=== PATIENT | male | born 1965 | race African-American/Black ===

== ENCOUNTER 2017-09-11 12:38 | Inpatient (IN) | payer MEDICARE, MEDICAID ==
[~2017-09-11] VITALS: Ht 193 cm; Wt 99.8 kg
[~2017-09-11 12:38] MED LIST: AMLO5TAB4 PO; ASPI-1159 PO; ATEN1TAB42 PO; ATOR40TA70 PO; CARV25TA47 PO; FOLI0.8T23 PO; LISI40TA4 PO; MINO2.5T19 PO; MULT-1146 PO; SEVE800T8 PO; [UNRECOGNIZED DRUG - REMARK] PO
[2017-09-11] MEDS ORDERED: MORPHINE SULFATE 4 MG/ML CPJ (NOT FOR IM USE) IV STA (13:22)
[2017-09-11] MEDS ORDERED: ONDANSETRON HCL 4MG/2ML VIAL IV STA (13:22)
[2017-09-11 14:49] LABS: BASOPHILS % 0.7 % (0.0-2.0); EOSINOPHILS % 3.5 % (0.0-5.0); HEMATOCRIT. 30.3 % (42.0-52.0); HEMOGLOBIN. 9.7 g/dL (14.0-18.0); LYMPHOCYTES % 11.9 % (20.0-50.0); MEAN CORPUSCULAR HEMOGLOBIN 25.4 pg (28.0-32.0); MEAN CORPUSCULAR VOLUME 79.2 fL (80.0-94.0); MEAN PLATELET VOLUME 9.8 fl (7.4-10.4); MONOCYTES % 11.8 % (2.0-8.0); NEUTROPHILS % 72.1 % (40.0-76.0); PLATELET 268 x1000/uL (130-400); RED BLOOD CELL COUNT 3.82 mill/uL (4.7-6.1); RED CELL DISTRIBUTION WIDTH 21.9 % (11.6-14.6)
[2017-09-11 14:50] LABS: INR 1.2; PROTHROMBIN TIME 12.1 sec (9.4-11.6)
[2017-09-11 14:54] LABS: CARBON DIOXIDE 31 mEq/L (21-32); CHLORIDE 97 mEq/L (98-107)
[2017-09-11] MEDS ORDERED: DEXTROSE 50% WATER 50ML SYRINGE IV ONE (16:00)
[2017-09-11] MEDS ORDERED: SODIUM BICARBONATE 8.4% 1 MEQ/ML 50ML SYR IV ONE (16:00)
[2017-09-11] MEDS ORDERED: SODIUM POLYSTYRENE SULFONATE 15 G/60 ML BOT PO ONE (16:00)
[2017-09-11] MEDS ORDERED: INSULIN REGULAR (HUMULIN R) 300UNITS/3ML IV ONE (16:00)
[2017-09-11] MEDS ORDERED: ONDANSETRON HCL 4MG/2ML VIAL IV ONE (16:45)
[2017-09-11] MEDS ORDERED: MORPHINE SULFATE 4 MG/ML CPJ (NOT FOR IM USE) IV ONE (16:45)
[2017-09-11 17:07] LABS: CLARITY URINE CLEAR (CLEAR); COLOR URINE YELLOW (YELLOW); GLUCOSE URINE TRACE (NEGATIVE); KETONES URINE NEGATIVE (NEGATIVE); LEUKOCYTE ESTERASE URINE 1+ (NEGATIVE); NITRITE URINE NEGATIVE (NEGATIVE); OCCULT BLOOD URINE NEGATIVE (NEGATIVE); PH URINE >=9.0 (4.5-8.0); PROTEIN URINE 3+ (NEGATIVE); SPECIFIC GRAVITY URINE 1.011 (1.005-1.030); UROBILINOGEN URINE 0.2 E.U./dL (0.2-1.0)
[2017-09-11] MEDS ORDERED: ACETAMINOPHEN 325MG TABLET PO PRN (17:15)
[2017-09-11] MEDS ORDERED: SODIUM POLYSTYRENE SULFONATE 15 G/60 ML BOT PO SCH (17:15)
[2017-09-11] MEDS ORDERED: ONDANSETRON HCL 4MG/2ML VIAL IV PRN (17:15)
[2017-09-11] MEDS: MORPHINE SULFATE 4 MG/ML CPJ (NOT FOR IM USE) IV PRN (19:37)
[2017-09-11] MEDS: CLONIDINE 0.1MG TABLET PO PRN (20:13)
[2017-09-11 22:20] VITALS: BP 181/114
[2017-09-11] MEDS ORDERED: CEFAZOLIN 1000MG PREMIX 50 ML IV SCH (23:00)
[2017-09-12] VITALS (12 sets, daily range): BP systolic 123–188; BP diastolic 78–122
[2017-09-12] MEDS: MORPHINE SULFATE 4 MG/ML CPJ (NOT FOR IM USE) IV PRN ×3 (00:24→13:15)
[2017-09-12] MEDS: CLONIDINE 0.1MG TABLET PO PRN (03:34)
[2017-09-12 06:41] LABS: BASOPHILS % 1.1 % (0.0-2.0); EOSINOPHILS % 3.6 % (0.0-5.0); HEMATOCRIT. 28.4 % (42.0-52.0); HEMOGLOBIN. 9.3 g/dL (14.0-18.0); LYMPHOCYTES % 8.1 % (20.0-50.0); MEAN CORPUSCULAR HEMOGLOBIN 25.5 pg (28.0-32.0); MEAN CORPUSCULAR VOLUME 78.1 fL (80.0-94.0); MEAN PLATELET VOLUME 10.1 fl (7.4-10.4); MONOCYTES % 14.2 % (2.0-8.0); PLATELET 247 x1000/uL (130-400); RED BLOOD CELL COUNT 3.64 mill/uL (4.7-6.1); RED CELL DISTRIBUTION WIDTH 21.3 % (11.6-14.6)
[2017-09-12 06:59] LABS: CARBON DIOXIDE 30 mEq/L (21-32); CHLORIDE 97 mEq/L (98-107)
[2017-09-12 07:02] LABS: TROPONIN I 0.09 ng/mL (0.00-0.04)
[2017-09-12] MEDS ORDERED: VITAMIN B COMP W C PO SCH (09:00)
[2017-09-12] MEDS ORDERED: FOLIC ACID PO SCH (09:00)
[2017-09-12] MEDS: LISINOPRIL 40MG TABLET PO SCH ×3 (09:00→21:00)
[2017-09-12] MEDS ORDERED: AMLODIPINE 5MG TABLET PO SCH (09:00)
[2017-09-12] MEDS ORDERED: IOHEXOL-300 100 ML BOTTLE ONE (09:49)
[2017-09-12] MEDS ORDERED: LIDOCAINE HCL 1% 20ML VIAL (Pyxis) INJ ONE (09:49)
[2017-09-12] MEDS ORDERED: SODIUM BICARBONATE 4% (2.4MEQ) 5ML VIAL IV ONE (09:49)
[2017-09-12] MEDS ORDERED: MIDAZOLAM HCL 2 MG/2 ML VIAL ONE (09:56)
[2017-09-12] MEDS ORDERED: FENTANYL CITRATE/PF 50MCG/ML 2ML VIAL ONE (09:56)
[2017-09-12] MEDS: SEVELAMER CARBONATE 800 MG TABLET PO SCH ×3 (11:03→18:23)
[2017-09-12] MEDS: FOLIC ACID/VITAMIN B COMP W-C TABLET PO SCH (11:03)
[2017-09-12] MEDS: CARVEDILOL 25MG TABLET PO SCH ×2 (11:04→20:46)
[2017-09-12] MEDS: MINOXIDIL 2.5MG TABLET PO SCH ×2 (11:04→21:00)
[2017-09-12] MEDS: ASPIRIN 81MG EC TABLET PO SCH (11:05)
[2017-09-12] MEDS: NIFEDIPINE XL 60MG TAB PO SCH ×2 (15:57→21:37)
[2017-09-12] MEDS: MORPHINE SULFATE 2 MG/ML CPJ (NOT FOR IM USE) IV PRN ×2 (18:24→23:28)
[2017-09-12] MEDS ORDERED: ATORVASTATIN CALCIUM 40MG TABLET PO SCH (21:00)
[2017-09-12] MEDS: AMLODIPINE 5MG TABLET PO SCH (21:00)
[2017-09-12] MEDS: HYDRALAZINE HCL 50MG TABLET PO SCH (21:56)
[2017-09-12] MEDS ORDERED: CEFAZOLIN 500MG in DEXTROSE 5% WATER 50ML IV SCH (23:00)
[2017-09-13 04:00] VITALS: BP 101/63
[2017-09-13] MEDS: HYDRALAZINE HCL 50MG TABLET PO SCH ×2 (05:22→14:00)
[2017-09-13 06:16] LABS: BASOPHILS % 0.6 % (0.0-2.0); EOSINOPHILS % 3.2 % (0.0-5.0); HEMATOCRIT. 28.6 % (42.0-52.0); HEMOGLOBIN. 9.3 g/dL (14.0-18.0); LYMPHOCYTES % 9.4 % (20.0-50.0); MEAN CORPUSCULAR HEMOGLOBIN 25.4 pg (28.0-32.0); MEAN CORPUSCULAR VOLUME 78.6 fL (80.0-94.0); MEAN PLATELET VOLUME 10.1 fl (7.4-10.4); MONOCYTES % 12.9 % (2.0-8.0); NEUTROPHILS % 73.9 % (40.0-76.0); PLATELET 232 x1000/uL (130-400); RED BLOOD CELL COUNT 3.64 mill/uL (4.7-6.1); RED CELL DISTRIBUTION WIDTH 21.6 % (11.6-14.6)
[2017-09-13 07:55] VITALS: BP 100/49
[2017-09-13] MEDS: SEVELAMER CARBONATE 800 MG TABLET PO SCH ×3 (08:47→16:33)
[2017-09-13] MEDS: ASPIRIN 81MG EC TABLET PO SCH (08:47)
[2017-09-13] MEDS: FOLIC ACID/VITAMIN B COMP W-C TABLET PO SCH (08:47)
[2017-09-13] MEDS: CARVEDILOL 25MG TABLET PO SCH (08:48)
[2017-09-13] MEDS: MORPHINE SULFATE 2 MG/ML CPJ (NOT FOR IM USE) IV PRN (08:48)
[2017-09-13] MEDS: MINOXIDIL 2.5MG TABLET PO SCH (08:48)
[2017-09-13] MEDS: LISINOPRIL 40MG TABLET PO SCH (08:49)
[2017-09-13] MEDS: AMLODIPINE 5MG TABLET PO SCH (08:49)
[2017-09-13] MEDS: NIFEDIPINE XL 60MG TAB PO SCH (08:49)
[2017-09-13 11:55] VITALS: BP 122/72
[2017-09-13 15:52] VITALS: BP 154/95
[2017-09-13 17:18] VITALS: BP 142/99
== END 2017-09-13 17:20 | disposition home or self-care (01) | DRG 314 ==
LOC: ER 13:45 → CANRESERV 15:29 → ENRESERV 15:29 → 8WST 16:59 → EDBEDREQ 17:01 → EDBEDREQSVC 17:01 → EDBEDREQTM 17:01 → ENRESERV 19:41
PROVIDERS: ADMIT Internal Medicine Nephrology; ATTEND Internal Medicine Nephrology
PROC: 5A1D70Z Performance of Urinary Filtration, Intermittent, Less than 6 Hours Per Day (ICD-10-PCS; 2017-09-11)
PROC: B51W1ZZ Fluoroscopy of Dialysis Shunt/Fistula using Low Osmolar Contrast (ICD-10-PCS; principal; 2017-09-12)
PROC: B51N1ZA Fluoroscopy of Left Upper Extremity Veins using Low Osmolar Contrast, Guidance (ICD-10-PCS; 2017-09-12)
DX: T82.7XXA Infection and inflammatory reaction due to other cardiac and vascular devices, implants and grafts, initial encounter (principal); N18.6 End stage renal disease; I13.2 Hypertensive heart and chronic kidney disease with heart failure and with stage 5 chronic kidney disease, or end stage renal disease; E87.5 Hyperkalemia; I50.20 Unspecified systolic (congestive) heart failure; L03.114 Cellulitis of left upper limb; D63.1 Anemia in chronic kidney disease; E78.5 Hyperlipidemia, unspecified; I25.10 Atherosclerotic heart disease of native coronary artery without angina pectoris; I25.5 Ischemic cardiomyopathy; Y83.2 Surgical operation with anastomosis, bypass or graft as the cause of abnormal reaction of the patient, or of later complication, without mention of misadventure at the time of the procedure; Z79.899 Other long term (current) drug therapy; Z95.1 Presence of aortocoronary bypass graft; Z82.49 Family history of ischemic heart disease and other diseases of the circulatory system; Z99.2 Dependence on renal dialysis; Z79.82 Long term (current) use of aspirin
CPT/HCPCS: 36415; 36901; 76937; 80048; 80053; 81001; 83605; 83735; 84484; 85025; 85610; 87040; 87086; 93005; 93971; 96374; 96375; 99285; A4565; C1887; J0690; J1644; J1815; J2250; J2270; J2405; J3010; J3490; J7030; J7050; J7060; Q9967

== ENCOUNTER 2017-09-20 05:48 | Inpatient (IN) | payer MEDICARE, MEDICAID ==
[~2017-09-20] VITALS: Ht 193 cm; Wt 104.8 kg
[2017-09-20] MEDS ORDERED: ASPIRIN 81MG TABLET PO SCH (06:25)
[2017-09-20] MEDS ORDERED: ACETAMINOPHEN 325MG TABLET PO PRN (10:15)
[2017-09-20] MEDS ORDERED: ONDANSETRON HCL 4MG/2ML VIAL IV PRN (10:15)
[2017-09-20] MEDS ORDERED: CLONIDINE 0.1MG TABLET PO PRN (10:15)
[2017-09-20 10:44] LABS: BASOPHILS % 0.5 % (0.0-2.0); HEMATOCRIT. 30.8 % (42.0-52.0); HEMOGLOBIN. 9.6 g/dL (14.0-18.0); LYMPHOCYTES % 12.1 % (20.0-50.0); MEAN CORPUSCULAR HEMOGLOBIN 25.1 pg (28.0-32.0); MEAN CORPUSCULAR VOLUME 80.6 fL (80.0-94.0); MEAN PLATELET VOLUME 9.8 fl (7.4-10.4); MONOCYTES % 13.5 % (2.0-8.0); NEUTROPHILS % 70.9 % (40.0-76.0); PLATELET 238 x1000/uL (130-400); RED BLOOD CELL COUNT 3.83 mill/uL (4.7-6.1); RED CELL DISTRIBUTION WIDTH 20.8 % (11.6-14.6)
[2017-09-20] MEDS ORDERED: ASPIRIN 81MG EC TABLET PO ONE (11:58)
[2017-09-20 12:30] VITALS: BP_SYST 159; BP_SYST 173; BP_DIAS 105; BP_DIAS 110
[2017-09-20] MEDS ORDERED: HYDRALAZINE 20MG/ML VIAL IV PRN (13:15)
[2017-09-20] MEDS: CARVEDILOL 25MG TABLET PO SCH ×2 (15:54→21:10)
[2017-09-20] MEDS: ENOXAPARIN 40MG/0.4ML SYR SUBCUT SCH (15:54)
[2017-09-20] MEDS: LISINOPRIL 20MG TABLET PO SCH ×2 (15:54→21:11)
[2017-09-20] MEDS: DILTIAZEM HCL 30MG TABLET PO SCH ×2 (15:54→21:10)
[2017-09-20 16:00] VITALS: BP 169/106
[2017-09-20] MEDS: MORPHINE SULFATE 10 MG/ML CPJ IV PRN ×2 (16:03→22:05)
[2017-09-20 20:00] VITALS: BP 180/115
[2017-09-20] MEDS: MINOXIDIL 2.5MG TABLET PO SCH (21:00)
[2017-09-20] MEDS: ATORVASTATIN CALCIUM 20MG TABLET PO SCH (21:11)
[2017-09-21] VITALS (7 sets, daily range): BP systolic 133–161; BP diastolic 86–113
[2017-09-21] MEDS: DILTIAZEM HCL 30MG TABLET PO SCH ×3 (05:58→21:11)
[2017-09-21 06:51] LABS: BASOPHILS % 0.6 % (0.0-2.0); EOSINOPHILS % 2.9 % (0.0-5.0); HEMATOCRIT. 29.3 % (42.0-52.0); HEMOGLOBIN. 9.3 g/dL (14.0-18.0); LYMPHOCYTES % 12.3 % (20.0-50.0); MEAN CORPUSCULAR VOLUME 78.5 fL (80.0-94.0); MEAN PLATELET VOLUME 9.6 fl (7.4-10.4); MONOCYTES % 14.8 % (2.0-8.0); NEUTROPHILS % 69.4 % (40.0-76.0); PLATELET 239 x1000/uL (130-400); RED BLOOD CELL COUNT 3.73 mill/uL (4.7-6.1); RED CELL DISTRIBUTION WIDTH 20.9 % (11.6-14.6)
[2017-09-21 07:01] LABS: CARBON DIOXIDE 28 mEq/L (21-32); CHLORIDE 99 mEq/L (98-107); HDL CHOLESTEROL 39 mg/dL (40-59); LDL CHOLESTEROL 58 mg/dL (5-100); TROPONIN I 0.08 ng/mL (0.00-0.04)
[2017-09-21] MEDS: CARVEDILOL 25MG TABLET PO SCH ×2 (08:32→20:01)
[2017-09-21] MEDS: MINOXIDIL 2.5MG TABLET PO SCH ×2 (08:33→21:00)
[2017-09-21] MEDS: LISINOPRIL 20MG TABLET PO SCH ×2 (08:33→20:01)
[2017-09-21] MEDS ORDERED: CLONIDINE 0.2MG TABLET PO PRN (10:30)
[2017-09-21] MEDS: HYDRALAZINE HCL 50MG TABLET PO SCH ×2 (15:13→21:11)
[2017-09-21] MEDS: ENOXAPARIN 40MG/0.4ML SYR SUBCUT SCH (15:15)
[2017-09-21] MEDS: MORPHINE SULFATE 10 MG/ML CPJ IV PRN ×2 (15:29→19:59)
[2017-09-21] MEDS: ATORVASTATIN CALCIUM 20MG TABLET PO SCH (20:00)
[2017-09-22] MEDS: MORPHINE SULFATE 10 MG/ML CPJ IV PRN ×2 (03:11→09:54)
[2017-09-22 04:00] VITALS: BP 165/97
[2017-09-22] MEDS: DILTIAZEM HCL 30MG TABLET PO SCH (05:30)
[2017-09-22] MEDS: HYDRALAZINE HCL 50MG TABLET PO SCH (05:30)
[2017-09-22 07:25] LABS: EOSINOPHILS % 2.9 % (0.0-5.0); HEMATOCRIT. 28.2 % (42.0-52.0); HEMOGLOBIN. 8.9 g/dL (14.0-18.0); LYMPHOCYTES % 15.3 % (20.0-50.0); MEAN PLATELET VOLUME 9.8 fl (7.4-10.4); MONOCYTES % 11.4 % (2.0-8.0); NEUTROPHILS % 69.4 % (40.0-76.0); PLATELET 256 x1000/uL (130-400); RED BLOOD CELL COUNT 3.58 mill/uL (4.7-6.1)
[2017-09-22 08:00] VITALS: BP 142/80
[2017-09-22] MEDS: CARVEDILOL 25MG TABLET PO SCH (08:42)
[2017-09-22] MEDS: MINOXIDIL 2.5MG TABLET PO SCH (08:42)
[2017-09-22] MEDS: LISINOPRIL 20MG TABLET PO SCH (08:42)
[2017-09-22] MEDS ORDERED: SODIUM POLYSTYRENE SULFONATE 15 G/60 ML BOT PO NR (10:30)
[2017-09-22 12:00] VITALS: BP 142/100
[2017-09-22 12:21] VITALS: BP 142/100
== END 2017-09-22 13:50 | disposition home or self-care (01) | DRG 308 ==
LOC: ER 05:48 → 7WST 09:52 → ENRESERV 09:52 → 7WST 13:20
PROVIDERS: ADMIT Internal Medicine Nephrology; ATTEND Internal Medicine Nephrology
PROC: 5A1D70Z Performance of Urinary Filtration, Intermittent, Less than 6 Hours Per Day (ICD-10-PCS; principal; 2017-09-20)
DX: I47.1 Supraventricular tachycardia (principal); N18.6 End stage renal disease; I13.2 Hypertensive heart and chronic kidney disease with heart failure and with stage 5 chronic kidney disease, or end stage renal disease; Z95.1 Presence of aortocoronary bypass graft; E87.5 Hyperkalemia; I25.10 Atherosclerotic heart disease of native coronary artery without angina pectoris; D63.8 Anemia in other chronic diseases classified elsewhere; E78.00 Pure hypercholesterolemia, unspecified; E78.5 Hyperlipidemia, unspecified; I25.5 Ischemic cardiomyopathy; I50.9 Heart failure, unspecified; Z99.2 Dependence on renal dialysis; Z86.14 Personal history of Methicillin resistant Staphylococcus aureus infection; Z79.82 Long term (current) use of aspirin; Z79.899 Other long term (current) drug therapy
CPT/HCPCS: 36415; 71010; 80048; 80053; 80061; 83735; 84443; 84484; 85025; 87040; 93005; 93970; 99285; J1650; J2270

== ENCOUNTER 2017-12-11 00:06 | Inpatient (IN) | payer MEDICARE, MEDICAID ==
[~2017-12-11] VITALS: Ht 193 cm; Wt 99.8 kg
[2017-12-11] MEDS ORDERED: NITROGLYCERIN OINT 1GM/INCH UDPKT TD ONE (01:00)
[2017-12-11] MEDS ORDERED: ASPIRIN 81MG TABLET PO ONE (01:00)
[2017-12-11] MEDS ORDERED: LABETALOL HCL 20MG/4ML CARPUJECT IV ONE (01:00)
[2017-12-11] MEDS ORDERED: HYDRALAZINE 20MG/ML VIAL IV ONE (01:00)
[2017-12-11 01:18] LABS: HEMATOCRIT. 35.7 % (42.0-52.0); HEMOGLOBIN. 11.3 g/dL (14.0-18.0); LYMPHOCYTES % 11.1 % (20.0-50.0); MEAN CORPUSCULAR HEMOGLOBIN 24.5 pg (28.0-32.0); MEAN CORPUSCULAR VOLUME 77.4 fL (80.0-94.0); MEAN PLATELET VOLUME 9.5 fl (7.4-10.4); MONOCYTES % 13.5 % (2.0-8.0); NEUTROPHILS % 68.4 % (40.0-76.0); PLATELET 167 x1000/uL (130-400); RED BLOOD CELL COUNT 4.61 mill/uL (4.7-6.1)
[2017-12-11 01:26] LABS: INR 1.1; PARTIAL THROMBOPLASTIN TIME 30.2 sec (23.4-31.0)
[2017-12-11] MEDS ORDERED: LABETALOL 5MG/ML SYR 20 MG/4 ML SYRINGE IV SCH (01:30)
[2017-12-11 01:37] LABS: CARBON DIOXIDE 23 mEq/L (21-32); CHLORIDE 102 mEq/L (98-107); ETHANOL BLOOD < 10 mg/dL; TROPONIN I 0.12 ng/mL (0.00-0.04)
[2017-12-11] MEDS ORDERED: GUAIFENESIN/CODEINE 200-20MG/10ML UDC PO SCH (02:12)
[2017-12-11] MEDS ORDERED: SODIUM POLYSTYRENE SULFONATE 15 G/60 ML BOT PO SCH (02:15)
[2017-12-11] MEDS ORDERED: INSULIN REGULAR (HUMULIN R) 300UNITS/3ML IV SCH (02:15)
[2017-12-11] MEDS ORDERED: DEXTROSE 50% WATER 50ML SYRINGE IV SCH (02:15)
[2017-12-11] MEDS ORDERED: CALCIUM CHLORIDE 1GM/10ML SYR IV SCH (02:15)
[2017-12-11] MEDS ORDERED: SODIUM BICARBONATE 8.4% 1 MEQ/ML 50ML SYR IV SCH (02:15)
[2017-12-11 03:34] LABS: *AMPHETAMINES SCREEN URINE NEGATIVE (NEGATIVE); *BARBITURATES SCREEN URINE NEGATIVE (NEGATIVE); *BENZODIAZEPINES SCREEN URINE NEGATIVE (NEGATIVE); *COCAINE SCREEN URINE NEGATIVE (NEGATIVE); CANNABINOID URINE SCREEN NEGATIVE (NEGATIVE); METHADONE URINE SCREEN NEGATIVE (NEGATIVE); OPIATES URINE SCREEN NEGATIVE (NEGATIVE); PHENCYCLIDINE URINE SCREEN NEGATIVE (NEGATIVE)
[2017-12-11] MEDS ORDERED: MORPHINE SULFATE 2 MG/ML CPJ (NOT FOR IM USE) IV PRN ×2 (04:00→07:00)
[2017-12-11] MEDS ORDERED: MORPHINE SULFATE 10 MG/ML CPJ IV PRN (06:27)
[2017-12-11] MEDS ORDERED: ACETAMINOPHEN 325MG TABLET PO PRN (07:00)
[2017-12-11] MEDS ORDERED: DOCUSATE SODIUM 100MG CAPSULE PO PRN (07:00)
[2017-12-11] MEDS ORDERED: GUAIFENESIN 200MG/10ML SUGAR FREE UDC PO PRN (07:00)
[2017-12-11] MEDS ORDERED: HYDROCODONE/APAP 7.5/325MG 1 TAB TABLET PO PRN (07:00)
[2017-12-11] MEDS ORDERED: IPRATROPIUM/ALBUTEROL 0.5-3(2.5)MG/3ML NEB INH PRN (07:00)
[2017-12-11] MEDS ORDERED: NA PHOS,M-B/NA PHOS,DI-BA ENEMA 118ML PR PRN (07:00)
[2017-12-11] MEDS ORDERED: DIPHENHYDRAMINE 50MG/ML VIAL IV PRN (07:00)
[2017-12-11] MEDS ORDERED: MAGNESIUM/ALUMINUM HYDROXIDE/SIMETHICONE 30ML UDC PO PRN (07:00)
[2017-12-11] MEDS ORDERED: ONDANSETRON HCL 4MG/2ML VIAL IV PRN (07:00)
[2017-12-11] MEDS ORDERED: LORAZEPAM 2MG/ML CPJ IV PRN (07:00)
[2017-12-11] MEDS ORDERED: SODIUM POLYSTYRENE SULFONATE 15 G/60 ML BOT PO NR (11:20)
[2017-12-11] MEDS ORDERED: SODIUM POLYSTYRENE SULFONATE 15 G/60 ML BOT PO ONE (11:30)
[2017-12-11] MEDS ORDERED: DEXTROSE 50% WATER 50ML SYRINGE IV ONE (11:30)
[2017-12-11] MEDS ORDERED: ASPIRIN 81MG EC TABLET PO SCH (11:30)
[2017-12-11] MEDS ORDERED: DEXTROSE 50% WATER 50ML SYRINGE IV NR (12:30)
[2017-12-11] MEDS ORDERED: INSULIN REGULAR (HUMULIN R) 300UNITS/3ML IV ONE (12:30)
[2017-12-11] MEDS ORDERED: SODIUM BICARBONATE 8.4% 1 MEQ/ML 50ML SYR IV NR (12:30)
[2017-12-11] MEDS ORDERED: LIDOCAINE HCL 1% 20ML VIAL (Pyxis) INJ ONE (14:15)
[2017-12-11 14:21] VITALS: BP 167/107
[2017-12-11 14:36] VITALS: BP 168/107
[2017-12-11 16:00] VITALS: BP 159/106
[2017-12-11] MEDS: CLONIDINE 0.1MG TABLET PO PRN (18:08)
[2017-12-11] MEDS: ENOXAPARIN 30MG/0.3ML SYR SUBCUT SCH (18:13)
[2017-12-11 20:00] VITALS: BP 156/88
[2017-12-11] MEDS: AMLODIPINE 5MG TABLET PO SCH (21:16)
[2017-12-12] VITALS (28 sets, daily range): BP systolic 140–174; BP diastolic 86–130
[2017-12-12] MEDS: MORPHINE SULFATE 4 MG/ML CPJ (NOT FOR IM USE) IV PRN ×2 (01:34→17:22)
[2017-12-12 06:54] LABS: HEMATOCRIT. 34.6 % (42.0-52.0); HEMOGLOBIN. 10.9 g/dL (14.0-18.0); MEAN CORPUSCULAR HEMOGLOBIN 24.1 pg (28.0-32.0); MEAN CORPUSCULAR VOLUME 76.9 fL (80.0-94.0); PLATELET 166 x1000/uL (130-400)
[2017-12-12 08:13] LABS: CHLORIDE 102 mEq/L (98-107)
[2017-12-12 08:26] LABS: CARBON DIOXIDE 25 mEq/L (21-32); HDL CHOLESTEROL 42 mg/dL (40-59); LDL CHOLESTEROL 47 mg/dL (5-100); T4 FREE 1.45 ng/dL (0.76-1.46); TROPONIN I 0.11 ng/mL (0.00-0.04)
[2017-12-12] MEDS: AMLODIPINE 5MG TABLET PO SCH ×2 (08:29→21:14)
[2017-12-12] MEDS: ASPIRIN 81MG EC TABLET PO SCH (08:29)
[2017-12-12] MEDS ORDERED: HEPARIN 1000 UNITS/ML 10ML ONE (08:37)
[2017-12-12] MEDS ORDERED: LIDOCAINE HCL 1% 20ML VIAL (Pyxis) INJ ONE (08:37)
[2017-12-12] MEDS ORDERED: SODIUM BICARBONATE 4% (2.4MEQ) 5ML VIAL IV ONE (08:37)
[2017-12-12] MEDS ORDERED: FENTANYL CITRATE/PF 50MCG/ML 2ML VIAL ONE (08:50)
[2017-12-12] MEDS ORDERED: IOHEXOL-300 100 ML BOTTLE ONE (08:50)
[2017-12-12] MEDS ORDERED: CEFAZOLIN 1000MG PREMIX 50 ML IV ONE ×2 (08:55→09:05)
[2017-12-12] MEDS ORDERED: MIDAZOLAM HCL 2 MG/2 ML VIAL ONE (08:56)
[2017-12-12] MEDS ORDERED: FENTANYL CITRATE/PF 50MCG/ML 2ML VIAL IV SCH (09:15)
[2017-12-12] MEDS ORDERED: DIPHENHYDRAMINE 50MG/ML VIAL IV ONE (09:55)
[2017-12-12] MEDS ORDERED: DIPHENHYDRAMINE 50MG/ML VIAL ONE (10:10)
[2017-12-12] MEDS: CLONIDINE 0.1MG TABLET PO PRN (11:16)
[2017-12-12] MEDS ORDERED: CLONIDINE 0.1MG TABLET PO PRN (13:30)
[2017-12-12] MEDS ORDERED: CLONIDINE 0.2MG TABLET PO PRN (13:30)
[2017-12-12 13:59] LABS: PLATELET ESTIMATE NORMAL
[2017-12-12] MEDS: HYDRALAZINE HCL 50MG TABLET PO SCH ×2 (14:00→22:00)
[2017-12-12] MEDS: ENOXAPARIN 30MG/0.3ML SYR SUBCUT SCH (16:40)
[2017-12-12] MEDS ORDERED: ATORVASTATIN CALCIUM 20MG TABLET PO SCH (21:00)
[2017-12-13] VITALS: BP 138/85
[2017-12-13 04:00] VITALS: BP 158/98
[2017-12-13] MEDS ORDERED: MORPHINE SULFATE 10 MG/ML CPJ IV PRN (04:15)
[2017-12-13] MEDS: HYDRALAZINE HCL 50MG TABLET PO SCH (05:25)
[2017-12-13 07:49] LABS: HEMATOCRIT. 33.2 % (42.0-52.0); HEMOGLOBIN. 10.3 g/dL (14.0-18.0); MEAN CORPUSCULAR HEMOGLOBIN 23.9 pg (28.0-32.0); MEAN CORPUSCULAR VOLUME 77.3 fL (80.0-94.0); MEAN PLATELET VOLUME 10.6 fl (7.4-10.4); PLATELET 183 x1000/uL (130-400); RED BLOOD CELL COUNT 4.29 mill/uL (4.7-6.1); RED CELL DISTRIBUTION WIDTH 24.5 % (11.6-14.6)
[2017-12-13 07:51] VITALS: BP 164/101
[2017-12-13] MEDS: AMLODIPINE 5MG TABLET PO SCH (08:04)
[2017-12-13] MEDS: ASPIRIN 81MG EC TABLET PO SCH (08:04)
[2017-12-13 09:19] VITALS: BP 153/95
[2017-12-13] MEDS ORDERED: SODIUM POLYSTYRENE SULFONATE 15 G/60 ML BOT PO NR (10:00)
[2017-12-13 10:40] LABS: PLATELET ESTIMATE NORMAL
== END 2017-12-13 11:15 | disposition home or self-care (01) | DRG 252 ==
LOC: ER 00:06 → EDBEDREQTM 02:21 → EDBEDREQ 02:21 → 8WST 03:57 → EDBEDREQTM 03:59 → EDBEDREQ 03:59 → ENRESERV 11:37
PROVIDERS: ADMIT Internal Medicine Nephrology; ATTEND Internal Medicine Nephrology
PROC: 06HN33Z Insertion of Infusion Device into Left Femoral Vein, Percutaneous Approach (ICD-10-PCS; principal; 2017-12-11)
PROC: 5A1D70Z Performance of Urinary Filtration, Intermittent, Less than 6 Hours Per Day (ICD-10-PCS; 2017-12-11)
PROC: B51C1ZA Fluoroscopy of Left Lower Extremity Veins using Low Osmolar Contrast, Guidance (ICD-10-PCS; 2017-12-11)
PROC: 5A1D70Z Performance of Urinary Filtration, Intermittent, Less than 6 Hours Per Day (ICD-10-PCS; 2017-12-12)
PROC: 03C83ZZ Extirpation of Matter from Left Brachial Artery, Percutaneous Approach (ICD-10-PCS; 2017-12-12)
PROC: 03783DZ Dilation of Left Brachial Artery with Intraluminal Device, Percutaneous Approach (ICD-10-PCS; 2017-12-12)
PROC: B31N1ZZ Fluoroscopy of Other Upper Arteries using Low Osmolar Contrast (ICD-10-PCS; 2017-12-12)
PROC: B51N1ZZ Fluoroscopy of Left Upper Extremity Veins using Low Osmolar Contrast (ICD-10-PCS; 2017-12-12)
PROC: B5181ZZ Fluoroscopy of Superior Vena Cava using Low Osmolar Contrast (ICD-10-PCS; 2017-12-12)
PROC: B31H1ZZ Fluoroscopy of Right Upper Extremity Arteries using Low Osmolar Contrast (ICD-10-PCS; 2017-12-12)
DX: T82.510A Breakdown (mechanical) of surgically created arteriovenous fistula, initial encounter (principal); N18.6 End stage renal disease; I13.2 Hypertensive heart and chronic kidney disease with heart failure and with stage 5 chronic kidney disease, or end stage renal disease; I42.0 Dilated cardiomyopathy; E46 Unspecified protein-calorie malnutrition; E87.5 Hyperkalemia; I50.9 Heart failure, unspecified; Y71.2 Prosthetic and other implants, materials and accessory cardiovascular devices associated with adverse incidents; I25.5 Ischemic cardiomyopathy; D63.8 Anemia in other chronic diseases classified elsewhere; E78.00 Pure hypercholesterolemia, unspecified; I25.10 Atherosclerotic heart disease of native coronary artery without angina pectoris; I73.9 Peripheral vascular disease, unspecified; Z79.82 Long term (current) use of aspirin; Z79.899 Other long term (current) drug therapy; Z91.19 Patient's noncompliance with other medical treatment and regimen; Z95.1 Presence of aortocoronary bypass graft; Z99.2 Dependence on renal dialysis; I25.2 Old myocardial infarction; Z68.26 Body mass index [BMI] 26.0-26.9, adult
CPT/HCPCS: 36415; 36556; 36906; 71045; 76937; 80048; 80053; 80061; 80305; 84132; 84439; 84443; 84484; 85025; 85610; 85730; 87804; 93005; 96365; 99291; C1725; C1752; C1766; C1769; C1876; C2630; G0482; J0360; J0690; J1200; J1644; J1650; J1815; J2250; J2270; J3010; J3490; J7030; J7050; Q9967